=== PATIENT | female | born 2000 | race Caucasian/White ===

== ENCOUNTER 2022-03-08 15:10 | Inpatient (IN) | payer SELFPAY ==
[~2022-03-08] VITALS: Ht 177.8 cm; Wt 77.1 kg
[2022-03-08 16:31] LABS: Urine Bacteria NONE SEEN /hpf (None Seen); Urine Blood TRACE /uL (Negative); Urine Mucus FEW (None Seen); Urine Specific Gravity 1.018 (1.001-1.035); Urine WBC 999 /hpf (0 - 5); Urine WBC Clumps PRESENT /hpf (None Seen)
[2022-03-08 16:32] LABS: Basophils # (auto) 0.1 10 ^3/uL (0-0.2); Eosinophils # (auto) 0 10 ^3/uL (0-0.8); Hemoglobin 9.8 g/dL (12.2-16.2); Lymphocytes # (auto) 1.4 10 ^3/uL (0.4-5.4); Monocytes # (auto) 0.7 10 ^3/uL (0-1.3); Neutrophils # (auto) 6.6 10 ^3/uL (1.6-8.6); White Blood Cell 8.8 10^3/uL (4.4-10.8)
[2022-03-08 16:34] LABS: Basophils % (auto) 0.6 % (0.0-2.0); Eosinophils % (auto) 0.2 % (0.0-7.0); Hematocrit 30.6 % (36.0-46.0); Lymphocytes % (auto) 16.4 % (10.0-50.0); Mean Corpuscular Hemoglobin 23.3 pg (28.0-32.0); Mean Corpuscular Volume 72.8 fL (80.0-100.0); Monocytes % (auto) 7.8 % (0.0-12.0); Nucleated Red Blood Cells % 0.1 %; Red Cell Distribution Width 17.6 % (11.8-14.3)
[2022-03-08 16:44] LABS: Amphetamine Screen, Urine NEGATIVE (NEGATIVE); Barbiturate Scree,Urine NEGATIVE (NEGATIVE); Benzodiazephine Screen, Urine NEGATIVE (NEGATIVE); Cannabinoid Screen, Urine NEGATIVE (NEGATIVE); Cocaine Screen, Urine NEGATIVE (NEGATIVE); Opiate Scree,Urine NEGATIVE (NEGATIVE); Phencyclidine Screen, Urine NEGATIVE (NEGATIVE)
[2022-03-08] MEDS ORDERED: PHISODERM TOP SOLN 240ML BTL TOP PRN (16:45)
[2022-03-08] MEDS ORDERED: PROMETHAZINE HCL 25 MG/ML 1ML IV PRN (16:45)
[2022-03-08] MEDS ORDERED: PENICILLIN G POT 5MIL/D5 50ML 50 ML IV ONE (16:45)
[2022-03-08] MEDS ORDERED: LACTATED RINGER'S 1,000 ML IV SCH (16:45)
[2022-03-08] MEDS ORDERED: WITCH HAZEL-GLYCERIN PAD TOP PRN (16:45)
[2022-03-08] MEDS ORDERED: LIDOCAINE 2%HCL (LOCAL ANESTH.) INJ 10ml MDV IJ PRN (16:45)
[2022-03-08] MEDS ORDERED: DERMOPLAST 60ML BOTTLE TOP PRN (16:45)
[2022-03-08] MEDS ORDERED: BUTORPHANOL TARTRATE 2 MG/1 ML VIAL IV PRN ×2 (16:45)
[2022-03-08 16:47] LABS: Albumin 2.6 g/dL (3.4-5.0); BUN/Creatinine Ratio 11.5; Potassium 3.6 mmol/L (3.5-5.1)
[2022-03-08 16:48] LABS: INR 0.95 (0.9-1.15); Partial Thromboplastin Time 24.2 sec (23.6-33.0)
[2022-03-08 16:50] LABS: Bilirubin, Total 0.8 mg/dL (0.2-1.0); Total Protein 7.5 g/dL (6.4-8.2)
[2022-03-08] MEDS ORDERED: ROPIVACAINE HCL 200 ML EPI SCH ×2 (20:00→21:45)
[2022-03-08] MEDS ORDERED: LACTATED RINGER'S 1,000 ML IV ONE (20:00)
[2022-03-08] MEDS ORDERED: ePHEDrine SULFATE 50 MG/ML AMP IV ONE (20:00)
[2022-03-08] MEDS ORDERED: fentaNYL CITRATE 100 MCG/2 ML VL IV ONE (20:00)
[2022-03-08] MEDS ORDERED: LIDOCAINE HCL 2 %PF INJ 10ML AMP IJ ONE (20:00)
[2022-03-08] MEDS ORDERED: PENICILLIN G POTASSIUM 2,500,000 UNITS in D5W 5% 50 ML IV SCH (20:45)
[2022-03-08] MEDS ORDERED: STERILE WATER 10 ML ONE (21:05)
[2022-03-08] MEDS ORDERED: LACT. RINGERS/OXYTOCIN 20UNITS 500 ML IV ONE ×2 (22:15→22:45)
[2022-03-09] MEDS ORDERED: LACT. RINGERS/OXYTOCIN 20UNITS 1,000 ML IV SCH (00:15)
[2022-03-09] MEDS ORDERED: ACETAMINOPHEN 325 MG TAB PO PRN (03:00)
[2022-03-09] MEDS ORDERED: ONDANSETRON ODT 4 MG TAB PO PRN (03:00)
[2022-03-09] MEDS ORDERED: IBUPROFEN 600 MG TAB PO PRN (03:00)
[2022-03-09 07:30] VITALS: BP 112/57
[2022-03-09 08:06] LABS: RPR Non Reactive (Non Reactive)
[2022-03-09 11:30] VITALS: BP 107/60
[2022-03-09 15:30] VITALS: BP 108/61
[2022-03-09 18:59] VITALS: BP 113/73
[2022-03-09 22:30] VITALS: BP 96/54
[2022-03-10 03:30] VITALS: BP 101/60
[2022-03-10 07:00] VITALS: BP 95/60
[2022-03-10] MEDS ORDERED: TETANUS-DIPTH-ACEL PERTUSSIS 0.5ML SYR Tdap IM ONE (07:30)
[2022-03-10 11:00] VITALS: BP 100/63
[2022-03-10 15:00] VITALS: BP 106/75
[2022-03-10 17:23] VITALS: BP 106/75
== END 2022-03-10 17:23 | disposition home or self-care (01) | DRG 807 ==
LOC: LDRP 15:10 → OBSVTOIN 16:15 → LDRP 16:27 → NUR 03-09 03:42 → LDRP 03-09 04:44
PROVIDERS: ADMIT Obstetrics & Gynecology; ATTEND Obstetrics & Gynecology
PROC: 10E0XZZ Delivery of Products of Conception, External Approach (ICD-10-PCS; principal; 2022-03-09)
PROC: 3E0R3BZ Introduction of Anesthetic Agent into Spinal Canal, Percutaneous Approach (ICD-10-PCS; 2022-03-09)
PROC: 00HU33Z Insertion of Infusion Device into Spinal Canal, Percutaneous Approach (ICD-10-PCS; 2022-03-09)
DX: O80 Encounter for full-term uncomplicated delivery (principal); Z37.0 Single live birth; Z20.822 Contact with and (suspected) exposure to COVID-19; Z3A.39 39 weeks gestation of pregnancy
CPT/HCPCS: 36415; 59025; 59409; 62282; 76805; 80053; 80307; 81001; 81002; 85025; 85384; 85610; 85730; 86592; 86703; 86762; 86850; 86900; 86901; 87340; 90715; 94760; 96360; 96361; 96365; 96366; G0378; J2001; J2540; J2590; J7060

== ENCOUNTER 2022-12-08 17:15 | Emergency (ER) | payer MEDICAID ==
[~2022-12-08] VITALS: Ht 177.8 cm; Wt 59.1 kg
[2022-12-08 19:10] LABS: Urine Bacteria FEW /hpf (None Seen); Urine Blood Negative /uL (Negative); Urine Mucus FEW (None Seen); Urine Specific Gravity 1.017 (1.001-1.035); Urine WBC 4 /hpf (0 - 5)
[2022-12-08] MEDS ORDERED: ASPirin 325 MG TAB PO ONE (19:45)
[2022-12-08 20:22] LABS: Basophils # (auto) 0 10 ^3/uL (0-0.2); Basophils % (auto) 0.5 % (0.0-2.0); Eosinophils # (auto) 0 10 ^3/uL (0-0.8); Hematocrit 38.8 % (36.0-46.0); Hemoglobin 13.1 g/dL (12.2-16.2); Lymphocytes # (auto) 1.5 10 ^3/uL (0.4-5.4); Lymphocytes % (auto) 25.5 % (10.0-50.0); Mean Corpuscular Hemoglobin 28.7 pg (28.0-32.0); Mean Corpuscular Hgb Conc. 33.7 g/dL (32.0-36.0); Mean Corpuscular Volume 85.2 fL (80.0-100.0); Monocytes # (auto) 0.3 10 ^3/uL (0-1.3); Monocytes % (auto) 5.2 % (0.0-12.0); Neutrophils # (auto) 4.2 10 ^3/uL (1.6-8.6); Neutrophils % (auto) 68.8 % (37.0-80.0); Red Blood Cells 4.55 10^6/uL (4.0-5.20); Red Cell Distribution Width 13.8 % (11.8-14.3); White Blood Cell 6.1 10^3/uL (4.4-10.8)
[2022-12-08 20:38] LABS: Albumin 4.1 g/dL (3.4-5.0); Potassium 3.6 mmol/L (3.5-5.1)
[2022-12-08 20:41] LABS: BUN/Creatinine Ratio 17.1; Bilirubin, Total 0.4 mg/dL (0.2-1.0); INR 1.04 (0.9-1.15); Partial Thromboplastin Time 26.8 sec (24.6-33.4); Total Protein 7.7 g/dL (6.4-8.2)
[2022-12-08 21:42] LABS: Alcohol, Urine < 3.0 mg/dL (0-10); Amphetamine Screen, Urine NEGATIVE (NEGATIVE); Barbiturate Scree,Urine NEGATIVE (NEGATIVE); Benzodiazephine Screen, Urine NEGATIVE (NEGATIVE); Cannabinoid Screen, Urine NEGATIVE (NEGATIVE); Cocaine Screen, Urine NEGATIVE (NEGATIVE); Opiate Scree,Urine NEGATIVE (NEGATIVE); Phencyclidine Screen, Urine NEGATIVE (NEGATIVE)
[2022-12-08] MEDS ORDERED: ACET1CAP14 PO (22:51)
[2022-12-08 23:27] VITALS: BP 125/86
== END 2022-12-08 23:32 | disposition home or self-care (01) ==
LOC: EDUNIT# 17:15 → EDBD 17:15 → ER 17:29
DX: M94.0 Chondrocostal junction syndrome [Tietze] (principal); R07.89 Other chest pain; Z88.8 Allergy status to other drugs, medicaments and biological substances
CPT/HCPCS: 36415; 71046; 80053; 80307; 81001; 83880; 84484; 85025; 85379; 85610; 85730; 93005

== ENCOUNTER 2024-02-28 19:49 | Emergency (ER) | payer MEDICAID ==
[~2024-02-28] VITALS: Ht 175.3 cm; Wt 70.0 kg
[~2024-02-28 19:49] MED LIST: ACET1CAP14 PO
[2024-02-28 20:18] VITALS: BP 123/77; PULSE 95; RESP 18; O2SAT 100
[2024-02-28 21:37] LABS: Amphetamine Screen, Urine Neg (NEGATIVE); Barbiturate Scree,Urine Neg (NEGATIVE); Benzodiazephine Screen, Urine Neg (NEGATIVE); Cocaine Screen, Urine Neg (NEGATIVE); Opiate Scree,Urine Neg (NEGATIVE)
[2024-02-28 21:38] LABS: Cannabinoid Screen, Urine Neg (NEGATIVE); Phencyclidine Screen, Urine Neg (NEGATIVE)
== END 2024-02-29 03:31 | disposition left against medical advice (07) ==
LOC: ER 19:49 → EDBD 19:49 → ER 02-29 03:31
DX: F29 Unspecified psychosis not due to a substance or known physiological condition (principal); Z79.899 Other long term (current) drug therapy; Z88.6 Allergy status to analgesic agent
CPT/HCPCS: 80307